=== PATIENT | male | born 1950 | race Caucasian/White ===

== ENCOUNTER 2017-06-12 16:06 | Emergency (ER) | payer OTHER ==
[2017-06-12] MEDS: HYDROCODONE/APAP (5/325) TAB PO (17:58)
[2017-06-12] MEDS: KETOROLAC 30 MG INJ IM (17:59)
[2017-06-12] MEDS: DEXAMETHASONE 10 MG/ML 1 ML INJ IM (17:59)
== END 2017-06-12 19:31 | disposition home or self-care (01) ==
LOC: FTE 16:06
DX: M54.5 Low back pain (principal); I10 Essential (primary) hypertension
CPT/HCPCS: 72128; 72131; 96372; 99285-25